=== PATIENT | female | born 1950 | race Caucasian/White ===

== ENCOUNTER 2023-08-13 16:24 | Emergency (ER) | payer OTHER ==
[~2023-08-13] VITALS: Ht 167.6 cm; Wt 85.0 kg
[2023-08-13 16:29] VITALS: O2SAT 99
[2023-08-13] MEDS ORDERED: CLONIDINE 0.2MG TABLET PO ONE (16:45)
[2023-08-13 17:30] VITALS: BP 167/79; PULSE 98; RESP 19; TEMP 98.6
[2023-08-13] MEDS ORDERED: ACETAMINOPHEN 325MG TABLET PO ONE (19:45)
[2023-08-13] MEDS ORDERED: CLON0.2T MT (20:23)
== END 2023-08-13 20:42 | disposition home or self-care (01) ==
LOC: ER 16:24
DX: R51.9 Headache, unspecified (principal); I10 Essential (primary) hypertension; E11.9 Type 2 diabetes mellitus without complications; Z88.2 Allergy status to sulfonamides
CPT/HCPCS: 99284